=== PATIENT | male | born 1955 | race Hispanic/Latino ===

== ENCOUNTER 2024-11-07 15:51 | Emergency (ER) | payer OTHER, MEDICARE ==
--- OUTSIDE RECORDS SUMMARY | 2024-11-07 15:53 | XMS REPORT | Continuity of Care Document ---
Author Name Unknown Address [address] [facility] [address] [place] [address] Organization [facility] [place] Address [address] [place] [address] Care Team Providers Care News Reel Cameraman Name Role Phone Angel Redmana Primary Care Physicia n Jus Rivera MD Attending Clinician TUAN COLINDRES Attending Clinician Unavailab SUSANA Sarmiento Attending Clinician Unav PHILIP Chavez Attending Clinician UnavailSALO Carlos Attending Clinician Unavailable ASHER SEPULVEDA Attending Clinician Unavailzeferino COLE MD Attending Clinician Unavailab enzo JUARES Attending Clinician Unavailable [id number] Attending Clinician Unavailable Payers Payer Name Policy Type Policy Number Effective Date Expirati on Date Source MEDICARE-PART B 5 [id number] 2022 00:00:00 BCBS 2 [id number] 2022 00:00:00 Allergies, Adverse Reactions, Alerts Allergy Name Allergy Type Status Severity Reaction(s) Onset Date Inactive Date Treating Clinician Comments Source NO KNOWN ALLERGIE S Drug Class Active Univers [facility] Social History Social Habit Start Date Stop Date Quantity Comments Source Sexual orientation U [facility] History of tobacco use Cigar Smoker Mei Rodriguez - External History of Social function 2024-10-11 00:00:00 2024-10-11 00:00:00 [facility] Alcohol intake 2023-01-29 00:00:00 2023-01-29 00:00:00 1.43 /d Mei Rodriguez - External Tobacco use and exposure 2022-11-19 00:00:00 2022-11-19 00:00:00 Smokeless tobacco non-user Mei Rodriguez - External Alcohol Comment 2022-11-19 00:00:00 2022-11-19 00:00:00 beer and gareth Mei Rodriguez - External Sex assigned at 1955 00:00:00 1955 00:00:00 [facility] Smoking Status Start Date Stop Date Source Tobacco smoking consumption unknown [facility] Occasional tobacco smoker 2022-11-19 00:00:00 Mei Rodriguez - External Medications Ordered Medication Name Filled Medication Name Start Date Stop Date Current Medication? Ordering Clinician Indication Dosage Frequency Signature (SIG) Comments Components Source lisinopriL 10 mg tablet 08-31 00:00: 00 Yes TAKE 1.5 TABLET BY MOUTH EVERY DAY FOR BLOOD PRESSURE [facility] amLODIPine 2.5 mg tablet 08-31 00:00: 00 11-30 04:59 :00 Yes 2.5mg Take 1 tablet by mouth. [facility] Amlodipine Besylate 2.5 MG oral Tablet 2022-02 2-14 15:59: 14 Yes 2.5mg Take 1 tablet (2.5 mg total) by mouth daily. Mei ocampo Lisinopril 10 MG oral Tablet 2022-02 0-27 00:00: 00 Yes [id number] 10mg Take 1 tablet (10 mg total) by mouth daily. Mei ocampo Ferrous Sulfate 325 (65 Fe) MG oral Tablet 2022-02 0-11 00:00: 00 Yes [id number] 325mg Take 1 tablet (325 mg total) by mouth daily (with breakfast) . Mei ocampo Meclizine HCl 25 MG oral Tablet 2022-02 0 00:00: 00 Yes [id number] 25mg [id number] 3D Take 1 tablet (25 mg total) by mouth 3 times daily as needed. Mei ocampo Lisinopril 10 MG oral Tablet 2022-02 00:00: 00 Yes [id number] 10mg Take 1 tablet (10 mg total) by mouth daily. Mei ocampo Immunizations Ordered Immunization Name Filled Immunization Name Date Status Comments Source SARS-COV-2 COVID-19 PFIZER VACCINE 2020-05-18 00:00:00 Completed [facility] SARS-COV-2 COVID-19 PFIZER VACCINE 2020-04-27 00:00:00 Completed [facility] Influenza, Injectable, Mdck, Quadrivalent With Preservative Unknown Completed Mei Rodriguez - External Tdap- (Boostrix, Adacel) Unknown Completed Mei Blair Influenza, Injectable, Mdck, Quadrivalent With Preservative Unknown Completed Mei Rodriguez - External Tdap- (Boostrix, Adacel) Unknown Completed Mei Rodriguez - Johnnie Pneumococcal Conjugate 15 (Vaxneuvance) Unknown Completed Mei Rodriguez - External Vital Signs Vital Name Observation Time Observation Value Comments S ource Systolic blood pressure 2024-10-11 13:17:00 151 mm[Hg] [facility] Diastolic blood pressure 2024-10-11 13:17:00 84 mm[Hg] [facility] Heart rate 2024-10-11 13:11:00 69 /min [facility] Respiratory rate 2024-10-11 13:11:00 20 /min [facility] Body height 2024-10-11 13:11:00 162.6 cm [facility] Body weight 2024-10-11 13:11:00 94.212 kg [facility] BMI 2024-10-11 13:11:00 35.65 kg/m2 [facility] Oxygen saturation in Arterial blood by Pulse oximetry 2024-10-11 13:11:00 99 /min [facility] Body height 2023-01-29 21:56:00 162.6 cm Guillermina ey Seybold - External Body weight 2023-01-29 21:56:00 98.431 kg Guillermina ey Seybold - External BMI 2023-01-29 21:56:00 37.25 kg/m2 Guillermina ey Seybold - External Systolic blood pressure 2022-12-04 12:50:00 142 mm[Hg] Mei Seybo ld - External Diastolic blood pressure 2022-12-04 12:50:00 66 mm[Hg] Mei Seybo ld - External Heart rate 2022-12-04 12:50:00 97 /min Kelse y Seybold - External Body temperature 2022-12-04 12:50:00 36.61 Dominga Mei Seybold - External Respiratory rate 2022-12-04 12:50:00 15 /min Mei Seybold - External Body height 2022-12-04 12:50:00 162.6 cm Guillermina ey Seybold - External Body weight 2022-12-04 12:50:00 98.884 kg Guillermina ey Seybold - External BMI 2022-12-04 12:50:00 37.42 kg/m2 Guillermina ey Seybold - External Systolic blood pressure 2022-11-20 14:02:00 160 mm[Hg] Mei Seybo ld - External Diastolic blood pressure 2022-11-20 14:02:00 84 mm[Hg] Mei Seybo ld - External Heart rate 2022-11-20 14:02:00 88 /min Kelse y Seybold - External Body temperature 2022-11-20 14:02:00 36.67 Dominga Mei Seybold - External Respiratory rate 2022-11-20 14:02:00 15 /min Mei Seybold - External Body height 2022-11-20 14:02:00 162.6 cm Guillermina ey Seybold - External Body weight 2022-11-20 14:02:00 97.07 kg Guillermina ey Seybold - External BMI 2022-11-20 14:02:00 36.73 kg/m2 Guillermina ey Seybold - External Encounters Start Date/Time End Date/Time Encounter Type Admission Type Attending [facility] Care Department Encounter ID Source 2024-10-11 08:00:00 2024-10-11 09:51:06 Office Visit Lucia Rivera [facility] [id number] [facility] 2023-08-29 00:00:00 2023-08-29 00:00:00 Outpatient TUAN COLINDRES [id number] [facility] 2023-03-31 08:55:00 2023-03-31 08:55:00 Outpatient SUSANA GUERRERO [id number] [facility] 2023-03-06 08:00:00 2023-03-06 08:00:00 Outpatient TUAN COLINDRES [id number] [facility] 2023-01-29 15:30:00 2023-01-29 15:30:00 Outpatient PHILIP SPAULDING [id number] [facility] 2023-01-26 00:00:00 2023-01-26 00:00:00 Outpatient TUAN COLINDRES [id number] [facility] 2023-01-05 00:00:00 2023-01-05 00:00:00 Outpatient SALO BERMAN [id number] [facility] 2023-01-05 00:00:00 2023-01-05 00:00:00 Outpatient SALO BERMAN [id number] [facility] 2023-01-02 16:00:00 2023-01-02 16:00:00 Outpatient ASHER SEPULVEDA [id number] [facility] 2022-12-26 16:00:00 2022-12-26 16:00:00 Outpatient ASHER SEPULVEDA [id number] [facility] 2022-12-22 00:00:00 2022-12-22 00:00:00 Outpatient MD MEI STREETER [id number] [facility] 2022-12-18 00:00:2022-12-18 00:00:00 Outpatient SALO BERMAN MEI SHELL [id number] [facility] 2022-12-12 00:00:00 2022-12-12 00:00:00 Outpatient ZACH COLINDRESA MEI SHELL [id number] [facility] 2022-12-04 08:00:00 2022-12-04 08:00:00 Outpatient TUAN COLINDRES [id number] [facility] 2022-12-04 00:00:00 2022-12-04 00:00:00 Outpatient CJCorkyMAXIMINO MEI SHELL [id number] [facility] 2022-11-26 00:00:00 2022-11-26 00:00:00 Outpatient TUAN COLINDRES [id number] [facility] 2022-11-24 00:00:00 2022-11-24 00:00:00 Outpatient TUAN COLINDRES [id number] [facility] 2022-11-21 08:35:00 2022-11-21 08:35:00 Outpatient LABBrandon MEI SHELL [id number] [facility] 2022-11-20 09:00:00 2022-11-20 09:00:00 Outpatient TUAN COLINDRES [id number] [facility] 2022-11-18 00:00:00 2022-11-18 00:00:00 Outpatient TUAN COLINDRES [id number] [facility]
[2024-11-07 16:45] LABS: Absolute Lymphocytes (CBC) 1.5 K/uL (0.7-4.9); Hematocrit 46.7 % (39.6-49.0); Hemoglobin 14.9 g/dL (13.6-17.9); MCH 26.0 pg (27.0-35.0); MCHC 32.0 g/dL (32.0-36.0); MCV 81.2 fL (80-100); MPV 11.2 fL (7.6-11.3); Nucleated RBC Absolute Count 0.0 (0-0); Nucleated Red Blood Cells % 0.1 % (0-0); RBC Red Blood Cell Count 5.74 M/uL (4.33-5.43); White Blood Count 4.60 thou/uL (4.3-10.9)
[2024-11-07 17:04] LABS: ALT/SGPT 47.0 U/L (16-61); AST/SGOT 11.0 U/L (15-37); Albumin 4.2 g/dL (3.4-5.0); Albumin/Globulin Ratio 1.1 (1.1-1.8); Alkaline Phosphatase 81.0 U/L (45-117); Anion Gap 9.9 mEq/L (5.0-15.0); BUN Blood Urea Nitrogen 24.0 mg/dL (7-18); Bilirubin Indirect, Calculated 0.5 mg/dL (0.2-0.8); Globulin 3.7 g/dL (2.3-3.5); Glucose Level 124.0 mg/dL (74-106); Magnesium 2.6 mg/dL (1.6-2.4); Potassium 3.9 mEq/L (3.5-5.1)
--- NOTE | 2024-11-07 17:25 | ER ---
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 PT DESCRIBES IT FEELING BLOOD LOYOLA TO HIS HEAD. PT ALSO REPORTS LT EAR "PLUGGED" LAST WEEK. Coronavirus screen: At this time, the client does not indicate any symptoms associated with coronavirus-19. Ebola Screen: No symptoms or risks identified at this time. Initial Sepsis Screen: Does the patient meet any 2 criteria? No. Patient's initial sepsis screen is negative. Does the patient have a suspected source of infection? No. Patient's initial sepsis screen is negative. Risk Assessment: Do you want to hurt yourself or someone else? Patient reports no desire to harm self or others. Onset of symptoms is unknown. 16:08 Method Of Arrival: Ambulatory dd2 16:08 Acuity: SUPRIYA 3 dd2 Triage Assessment: 16:11 General: Appears in no apparent distress. Behavior is calm, cooperative, appropriate dd2 for age. Pain: Denies pain. Neuro: Reports dizziness, since X1 WEEK. Historical: - Allergies: 16:11 No Known Allergies; dd2 - PMHx: 16:11 Hypertensive disorder; VERTIGO; dd2 - PSHx: 16:11 None; dd2 - Social history:: Smoking status: Patient/guardian denies using tobacco, but has a distant history of tobacco abuse. Screenin:11 [facility] ED Fall Risk Assessment (Adult) History of falling in the last 3 months, bp including since admission No falls in past 3 months (0 pts) Confusion or Disorientation No (0 pts) Intoxicated or Sedated No (0 pts) Impaired Gait No (0 pts) Mobility Assist Device Used No (0 pt) Altered Elimination No (0 pt) Score/Fall Risk Level 0 - 2 = Low Risk Oriented to surroundings. Abuse screen: Denies threats or abuse. Denies injuries from another. Nutritional screening: No deficits noted. Tuberculosis screening: No symptoms or risk factors identified. Assessment: 16:11 General: SEE TRIAGE NOTE. bp 17:14 Reassessment: Patient appears in no apparent distress at this time. Patient is alert, bp oriented x 3, equal unlabored respirations, skin warm/dry/pink. Vital Signs: 16:08 BP 137 / 74 Supine; Pulse 73; Resp 17; Temp 98.1; Pulse Ox 98% ; Weight 90.95 kg; Pain dd2 0/10; 16:08 BP 143 / 91 Sitting; Pulse 89; dd2 16:08 BP 140 / 85 Standing; Pulse 78; dd2 17:00 BP 128 / 77 Supine; Pulse 68; Resp 15; Pulse Ox 97% ; bp 17:05 BP 118 / 71 Standing; Pulse 67; Resp 13; Pulse Ox 96% ; bp 16:08 Pain Scale: Adult dd2 ED Course: 15:55 Patient arrived in ED. al6 15:58 Yadira [facility]-C [facility] kb 15:58 Bright Daugherty MD is Attending Physician. kb 16:01 Heri Hernandez, RN is Primary Nurse. bp 16:11 Triage completed. dd2 16:11 Arm band placed on. dd2 16:27 Inserted saline lock: 22 gauge in left antecubital area, using aseptic technique. Blood bp collected. Flushed with 10 mL NS. 17:15 Patient has correct armband on for positive identification. bp 17:43 No provider procedures requiring assistance completed. IV discontinued, intact, jb4 bleeding controlled, No redness/swelling at site. Pressure dressing applied. Administered Medications: 17:29 Drug: Meclizine PO 25 mg PO once Route: PO; bp Outcome: 17:24 Discharge ordered by . kb 17:43 Discharged to home ambulatory, jb4 17:43 Condition: stable 17:43 Discharge instructions given to patient, Instructed on discharge instructions, follow up and referral plans. no drinking with medication, no driving heavy equipment, medication usage, Demonstrated understanding of instructions, follow-up care, medications, Prescriptions given X 1, 17:44 Patient left the ED. jb4 Signatures: Yadira Nguyen FNP-C FNP-Ckb Bryson, James, RN RN jb4 Heri Hernandez RN RN NISA Singh RN RN dd2 Nicole, Wen al6
--- NOTE | 2024-11-07 17:25 | EDPHYS ---
Physician Documentation [facility] Name: Stephanie Weems Age: 69 yrs Sex: Male : 1955 Arrival Date: 11/07/2024 Time: 15:51 Bed 5 Private MD: ED Physician Bright Daugherty HPI: 11/07 16:52 This 69 yrs old Male presents to ER via Ambulatory with complaints of kb Dizziness. 16:58 Pt is a 69 year old male who presents for dizziness that has happens daily for the past kb 15 years. States he has been to neurology and the workup has been normal. States he has seen cardiology as well and has a follow up with echo scheduled for tomorrow. Denies chest pain, palpitations. States the dizziness is worse when he is under more stress. Reports increased stress today and he was using two computer screens at work so that could have made it worse. . Historical: - Allergies: 16:11 No Known Allergies; dd2 - PMHx: 16:11 Hypertensive disorder; VERTIGO; dd2 - PSHx: 16:11 None; dd2 - Social history:: Smoking status: Patient/guardian denies using tobacco, but has a distant history of tobacco abuse. ROS: 17:00 Constitutional: As per HPI kb Exam: 16:53 Constitutional: This is a well developed, well nourished patient who is awake, alert, kb and in no acute distress. Head/Face: Normocephalic, atraumatic. Eyes: Pupils equal round and reactive to light, extra-ocular motions intact. Lids and lashes normal. Conjunctiva and sclera are non-icteric and not injected. Cornea within normal limits. Periorbital areas with no swelling, redness, or edema. ENT: Moist Mucous membranes Cardiovascular: Regular rate Respiratory: Respirations even and unlabored. No increased work of breathing. Talking in full sentences Skin: Warm, dry with normal turgor. Normal color. MS/ Extremity: Pulses equal, no cyanosis. Neurovascular intact. Full, normal range of motion. Neuro: Awake and alert, GCS 15, oriented to person, place, time, and situation. 16:53 ECG was reviewed by the Attending Physician. Vital Signs: 16:08 BP 137 / 74 Supine; Pulse 73; Resp 17; Temp 98.1; Pulse Ox 98% ; Weight 90.95 kg; Pain dd2 0/10; 16:08 BP 143 / 91 Sitting; Pulse 89; dd2 16:08 BP 140 / 85 Standing; Pulse 78; dd2 17:00 BP 128 / 77 Supine; Pulse 68; Resp 15; Pulse Ox 97% ; bp 17:05 BP 118 / 71 Standing; Pulse 67; Resp 13; Pulse Ox 96% ; bp 16:08 Pain Scale: Adult dd2 MDM: 15:58 Medical Screening Exam initiated kb 17:23 Data reviewed: vital signs, nurses notes. kb 17:23 Differential diagnosis: cardiac arrhythmia, CVA, idiopathic dizziness, TIA, vertigo. kb Test considered but Not performed: CT: ct chest considered but pt has had dizziness for years, no neuro deficits. 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 11/07 16:04 Order name: Basic Metabolic Panel; Complete Time: 17:07 kb 11/07 16:04 Order name: CBC with Diff; Complete Time: 16:54 kb 11/07 16:04 Order name: Hepatic Function; Complete Time: 17:07 kb 11/07 16:04 Order name: Magnesium; Complete Time: 17:07 kb 11/07 16:04 Order name: EKG; Complete Time: 16:05 kb 11/07 16:04 Order name: Cardiac monitoring; Complete Time: 16:27 kb 11/07 16:04 Order name: EKG - Nurse/Tech; Complete Time: 16:44 kb 11/07 16:04 Order name: IV Saline Lock; Complete Time: 16:27 kb 11/07 16:04 Order name: Labs collected and sent; Complete Time: 16:27 kb 11/07 16:04 Order name: NPO; Complete Time: 16:27 kb 11/07 16:04 Order name: O2 Per Protocol; Complete Time: 16:27 kb 11/07 16:04 Order name: O2 Sat Monitoring; Complete Time: 16:27 kb 11/07 16:04 Order name: Orthostatics; Complete Time: 17:15 kb EC:53 Rate is 70 beats/min. Rhythm is regular. QRS [place] is Normal. ME interval is normal at kb 152 msec. QRS interval is normal at 78 msec. QT interval is normal at 438 msec. Administered Medications: 17:29 Drug: Meclizine PO 25 mg PO once Route: PO; bp Disposition: 18:38 Co-signature as Attending Physician, Bright Daugherty MD I reviewed the patient's care rn provided by the Advanced Practice Provider and agree with the diagnosis and treatment plan. Disposition Summary: 11/07/24 17:24 Discharge Ordered Notes: Location: Home kb Condition: Stable kb Diagnosis - Dizziness and giddiness kb Followup: kb - With: Emergency Department - When: As needed - Reason: Worsening of condition Followup: kb - With: Private Physician - When: 2 - 3 days - Reason: Recheck today's complaints, Continuance of care, Re-evaluation by your physician Discharge Instructions: - Discharge Summary Sheet kb - Vertigo, [id number] kb - Dizziness, [id number] kb Forms: - Medication Reconciliation Form kb - Antibiotic Education kb - Prescription Opioid Use kb - Patient Portal Instructions kb - Leadership Thank You Letter kb Prescriptions: - Meclizine 25 mg Oral tablet - take 1 tablet ORAL route every 8 hours As needed; 15 tablet; Refills: 0, kb Product Selection Permitted Signatures: Dispatcher [employer] EDMS Yadira Nguyen, DIRECTOR CRAFT CENTER-C DIRECTOR CRAFT CENTER-Bright Black MD MD rn Peltier, Brian, RN RN bp DAVIS, DIANA, RN RN dd2
[2024-11-07] MEDS ORDERED: MECLIZINE HCL 12.5 MG TAB ONE (17:28)
[2024-11-07 18:45] VITALS: TEMP 98.1
[2024-11-07 18:47] VITALS: BP 118/71; O2SAT 96
== END 2024-11-07 17:44 | disposition home or self-care (01) ==
LOC: ER 15:51
DX: R42 Dizziness and giddiness (principal); I10 Essential (primary) hypertension
CPT/HCPCS: 93005; 85025; 80048; 36415; 83735; 80076; 99284; J8597